=== PATIENT | male | born 1985 | race Caucasian/White ===

== ENCOUNTER 2021-05-03 17:04 | Emergency (ER) | payer MEDICAID ==
[~2021-05-03] VITALS: Ht 170.2 cm; Wt 80.0 kg
[2021-05-03] MEDS ORDERED: PERTUSS(ACELL),DIPH,TET VAC/PF 0.5 ML SYRINGE IM. ONE (19:30)
[2021-05-03] MEDS ORDERED: KETOROLAC TROMETHAMINE 60 MG/2 ML VIAL IM ONE (19:30)
[2021-05-03] MEDS ORDERED: LIDOCAINE 1% 10 ML VIAL ID ONE (20:00)
[2021-05-03 23:02] VITALS: BP 146/100
== END 2021-05-03 23:16 | disposition home or self-care (01) ==
LOC: EMS 17:04
DX: S01.511A Laceration without foreign body of lip, initial encounter (principal); M54.5 Low back pain; W22.8XXA Striking against or struck by other objects, initial encounter; Y93.89 Activity, other specified; Y92.89 Other specified places as the place of occurrence of the external cause; Y99.8 Other external cause status
CPT/HCPCS: 40650; 70450; 70486; 72100; 90471; 90715; 96372; 99285; J1885; J3490

== ENCOUNTER 2021-05-14 13:48 | Emergency (ER) | payer MEDICAID ==
[~2021-05-14] VITALS: Ht 160 cm; Wt 75.0 kg
[2021-05-14 14:51] VITALS: BP 155/107
== END 2021-05-14 14:53 | disposition home or self-care (01) ==
LOC: EMS 13:51
DX: S01.511D Laceration without foreign body of lip, subsequent encounter (principal); I10 Essential (primary) hypertension; F17.210 Nicotine dependence, cigarettes, uncomplicated; X58.XXXD Exposure to other specified factors, subsequent encounter
CPT/HCPCS: 99281; Z7502